=== PATIENT | female | born 1980 ===

== ENCOUNTER 2017-10-26 19:49 | Emergency (ER) | payer MEDICARE ==
[2017-10-26 20:54] VITALS: BP 106/64
[2017-10-27] MEDS ORDERED: VISTARIL PO ONE (00:30)
[2017-10-27] MEDS ORDERED: DECADRON IM ONE (00:30)
[2017-10-27] MEDS ORDERED: NORCO 5/325 PO ONE (00:30)
--- NOTE | 2017-10-27 00:31 | Emergency Department Report ---
ED Rash HPI - HPI Chief Complaint: Skin Rash Stated Complaint: WOLFF ON FACE SKIN BACK,HEADACHE Time Seen by Provider: 10/26/17 22:50 Duration: 1 Day Location: Head (face), Upper Extremities, Lower Extremities Suspected Cause: Food Rash Symptoms: Yes Itching, No Facial Swelling, No Tongue/Oral Swelling, No Breathing Difficulties, No Choking Sensation, No Wheezing/Dyspnea, No Peeling, No Blistering, No Fever, No Lightheaded, No Malaise, No Myalgias Severity: moderate Other History: This is a 37-year-old female who presents with a rash to face neck and bilateral upper extremity and had a blood starting yesterday. Patient reportedly was eating a chicken salad from [employer] last night as broken out with a rash shortly after eating dinner. Patient reports she woke up yesterday morning she had a migraine headache. She tried taking Aleve with nose relief of symptoms. He has been up on her written a 2 face for rash to face and no improvement of symptoms. Denies any visual changes , aura with headache, tongue swelling, drooling, and difficulty swallowing. ED Review of Systems ROS: Stated complaint: WOLFF ON FACE SKIN BACK,HEADACHE Other details as noted in HPI Constitutional: denies: chills, fever Respiratory: denies: cough, shortness of breath, wheezing Cardiovascular: denies: chest pain, palpitations Gastrointestinal: denies: abdominal pain, nausea, vomiting, diarrhea Skin: rash (face, neck, and BUE). denies: lesions Neurological: headache. denies: weakness, numbness, paresthesias Psychiatric: denies: anxiety, depression ED Past Medical Hx - Past Medical History Previous Medical History?: Yes Hx GERD: Yes Additional medical history: Patient has a psychiatric history - Surgical History Past Surgical History?: Yes Hx Cholecystectomy: Yes - Social History Smoking Status: Never Smoker Substance Use Type: None - Medications Home Medications: Home Medications Medication Instructions Recorded Confirmed Last Taken Type Ondansetron [Zofran Odt] 4 mg PO Q6HR PRN #20 tab.rapdis 12/02/15 Unknown Rx Promethazine [Phenergan TAB] 25 mg PO Q6HR PRN #20 tab 12/02/15 Unknown Rx traMADol [Ultram 50 MG tab] 50 mg PO Q6HR PRN #20 tablet 12/02/15 Unknown Rx Prednisone [predniSONE 5 mg (6-Day 5 mg PO .TAPER #1 tab.ds.pk 10/27/17 Unknown Rx Pack, 21 Tabs)] Triamcinolone 0.5% [Kenalog 0.5% 1 applic TP TID #60 mg 10/27/17 Unknown Rx CREAM] hydrOXYzine PAMOATE [Vistaril] 25 mg PO Q6HR PRN #20 capsule 10/27/17 Unknown Rx Rash Exam - Exam General: Vital signs noted. No distress. Alert and acting appropriately. HEENT: No Periorbital Edema, No Conjuctival Injection, No Chemosis, No Perioral Edema, No Tongue Edema, No Uvular Edema, No Compromised Airway, No Drooling Lungs: Yes Good Air Exchange (Normal Breath Sounds), No Wheezes, No Ronchi, No Stridor, No Cough, No Labored Respirations, No Retractions, No Use of Accessory Muscles, No Other Abnormal Lung Sounds Heart: Yes Regular, No Murmur Skin: Yes Maculopapular Rash (multiple 1-2 cm erythematous maculular papular rash to face, anterior neck and BUE), No Urticarial Rash, No Morbilliform rash, No Bulla(e), No Excoriations, No Weeping, No Tenderness, No Erythema, No Edema, No Encrustations, No Other Other: Positive: Abdomen Normal, Neurologic Normal, Musculoskeletal Normal ED Course Vital Signs 10/26/17 20:51 Temperature 98.6 F Pulse Rate 73 Respiratory 16 Rate Blood Pressure 106/64 O2 Sat by Pulse 98 Oximetry ED Medical Decision Making - Medical Decision Making This is a 37-year-old female with a rash to face, neck, and bilateral upper extremities. Patient was examined by me. Vital stable. Patient is nontoxic appearing. Given dexamethasone 8 mg IM, and Vistaril 25 mg by mouth, [place] 5/ 325 mg by mouth once in the ER. Start medrol dose aydin, Vistaril, triamcinolone cream. Plan discussed with patient to discharge home and treat outpatient. Shee agrees with ER plan. Patient discharged home in stable condition. Follow up with PCP in 2-3 days. Critical care attestation.: If time is entered above; I have spent that time in minutes in the direct care of this critically ill patient, excluding procedure time. ED Disposition Clinical Impression: Allergic contact dermatitis Qualifiers: Contact dermatitis trigger: unspecified trigger Qualified Code(s): L23.9 - Allergic contact dermatitis, unspecified cause Migraine Qualifiers: Migraine type: without aura Status migrainosus presence: with status migrainosus Intractability: not intractable Qualified Code(s): G43.001 - Migraine without aura, not intractable, with status migrainosus Disposition: TO HOME OR SELFCARE Is pt being admited?: No Does the pt Need Aspirin: No Condition: Stable Instructions: Contact Dermatitis (ED), Migraine Headache (ED) Additional Instructions: Apply a thin layer of triamcinolone cream to affected areas twice a day. Take Vistaril for itching. Follow-up with primary care provider in 2-3 days. Prescriptions: hydrOXYzine PAMOATE [Vistaril] 25 mg PO Q6HR PRN #20 capsule PRN Reason: Itching Prednisone [predniSONE 5 mg (6-Day Pack, 21 Tabs)] 5 mg PO .TAPER #1 tab.ds.pk Triamcinolone 0.5% [Kenalog 0.5% CREAM] 1 applic TP TID #60 mg Referrals: [facility] [Outside] - 3-5 Days [facility] [Outside] - 3-5 Days [facility] [Outside] - 3-5 Days Time of Disposition: 01:36 Print Language: ROMANSH
== END 2017-10-27 01:50 | disposition home or self-care (01) ==
LOC: ED 19:49
DX: L23.9 Allergic contact dermatitis, unspecified cause (principal); G43.001 Migraine without aura, not intractable, with status migrainosus; K21.9 Gastro-esophageal reflux disease without esophagitis; Z90.49 Acquired absence of other specified parts of digestive tract; Z79.899 Other long term (current) drug therapy; Z88.1 Allergy status to other antibiotic agents
CPT/HCPCS: 96372; 99282; J1100; Q0177

== ENCOUNTER 2018-01-11 11:51 | Emergency (ER) | payer MEDICARE ==
[2018-01-11] MEDS ORDERED: NACL 0.9% 500 ML 500 ML IV ONE ×2 (12:59→14:30)
--- NOTE | 2018-01-11 13:07 | Emergency Department Report ---
Chief Complaint: Weakness Stated Complaint: LOW IRON Time Seen by Provider: 01/11/18 12:45 - HPI History of Present Illness: 37 yo F presents to the ED with the complaint of generalized weakness. She also has not been eating or sleeping. She has a hx of depression for which she sees Dr Taylor and in on Zyprexa and another med for the past month. This is when some of her other physical symptoms and/or complaints started. She also has a history of iron deficiency anemia. The father is with her and does most of the talking and says she was sent in by her PCP for IVF and evaluation. - ROS Review of Systems: Positive for generalized weakness, insomnia, decreased appetite Negative for CP, SOB, fever, N/V, vag bleeding - Exam Vital Signs: Vital Signs 01/11/18 11:57 Temperature 97.9 F Pulse Rate 108 H Respiratory 16 Rate Blood Pressure 129/81 O2 Sat by Pulse 100 Oximetry Physical Exam: Patient has a flat affect. Awake and alert. Normal heart and lung sounds to auscultation. MSE screening note: Focused history and physical exam performed. Due to findings the following was ordered: I have ordered a CBC, BMP, TSH, U/A and preg test. She will have IVF. ED Disposition for MSE Condition: Stable Referrals: PRIMARY CARE, [Primary Care Provider] - 3-5 Days
[2018-01-11 13:14] LABS: Basophils # (Auto) 0.1 K/mm3 (0.0-0.1); Basophils % (Auto) 0.8 % (0.0-1.8); Eosinophils # (Auto) 0.1 K/mm3 (0.0-0.4); Eosinophils % (Auto) 0.8 % (0.0-4.3); Hematocrit 38.6 % (30.3-42.9); Hemoglobin 12.2 gm/dl (10.1-14.3); Lymphocytes # (Auto) 2.1 K/mm3 (1.2-5.4); Lymphocytes % (Auto) 30.1 % (13.4-35.0); Mean Corpuscular HGB Conc 32 % (30-34); Mean Corpuscular Volume 72 fl (79-97); Monocytes % (Auto) 14.1 % (0.0-7.3); Platelet Count 295 K/mm3 (140-440); Red Blood Count 5.39 M/mm3 (3.65-5.03); Red Cell Distribution Width 16.3 % (13.2-15.2)
[2018-01-11 13:17] LABS: Mean Corpuscular Hemoglobin 23 pg (28-32)
[2018-01-11 13:43] LABS: Alanine Aminotransferase 23 units/L (7-56); Albumin 4.4 g/dL (3.9-5); BUN/Creatinine Ratio 26; Blood Urea Nitrogen 13 mg/dL (7-17); Calcium 8.8 mg/dL (8.4-10.2); Hemolysis Index 4
--- NOTE | 2018-01-11 15:04 | Emergency Department Report ---
HPI - General Chief Complaint: Weakness Time Seen by Provider: 01/11/18 12:45 - HPI HPI: 37 yo F presents to the ED with the complaint of generalized weakness. She also has not been eating or sleeping. She has a hx of depression for which she sees Dr Taylor and in on Zyprexa and another med for the past month. This is when some of her other physical symptoms and/or complaints started. She also has a history of iron deficiency anemia. The father is with her and does most of the talking and says she was sent in by her PCP, Dr Rader, for IVF and evaluation. ED Past Medical Hx - Past Medical History Hx GERD: Yes Additional medical history: Patient has a psychiatric history - Surgical History Hx Cholecystectomy: Yes - Social History Smoking Status: Never Smoker Substance Use Type: None - Medications Home Medications: Home Medications Medication Instructions Recorded Confirmed Last Taken Type Ondansetron [Zofran Odt] 4 mg PO Q6HR PRN #20 tab.rapdis 12/02/15 Unknown Rx Promethazine [Phenergan TAB] 25 mg PO Q6HR PRN #20 tab 12/02/15 Unknown Rx traMADol [Ultram 50 MG tab] 50 mg PO Q6HR PRN #20 tablet 12/02/15 Unknown Rx Prednisone [predniSONE 5 mg (6-Day 5 mg PO .TAPER #1 tab.ds.pk 10/27/17 Unknown Rx Pack, 21 Tabs)] Triamcinolone 0.5% [Kenalog 0.5% 1 applic TP TID #60 mg 10/27/17 Unknown Rx CREAM] hydrOXYzine PAMOATE [Vistaril] 25 mg PO Q6HR PRN #20 capsule 10/27/17 Unknown Rx ED Review of Systems ROS: Stated complaint: LOW IRON Other details as noted in HPI Comment: All other systems reviewed and negative Constitutional: weakness, other (decreased appetite, insomnia). denies: fever Eyes: denies: eye pain, eye discharge, vision change ENT: denies: ear pain, throat pain Respiratory: denies: cough, shortness of breath, wheezing Cardiovascular: denies: chest pain, palpitations Gastrointestinal: denies: abdominal pain, nausea, diarrhea Genitourinary: denies: urgency, dysuria, discharge Musculoskeletal: denies: back pain, joint swelling, arthralgia Skin: denies: rash, lesions Neurological: denies: headache, numbness Psychiatric: depression Physical Exam - Physical Exam Vital Signs: Vital Signs 01/11/18 11:57 Temperature 97.9 F Pulse Rate 108 H Respiratory 16 Rate Blood Pressure 129/81 O2 Sat by Pulse 100 Oximetry Physical Exam: GENERAL: The patient is well-developed well-nourished. HENT: Normocephalic. Atraumatic. Patient has moist mucous membranes. EYES: Extraocular motions are intact. Pupils equal reactive to light bilaterally. NECK: Supple. Trachea is midline. CHEST/LUNGS: Clear to auscultation. There is no respiratory distress noted. HEART/CARDIOVASCULAR: Regular. There is no tachycardia. There is no murmur. ABDOMEN: Abdomen is soft, nontender. Patient has normal bowel sounds. There is no abdominal distention. SKIN: Skin is warm and dry. NEURO: The patient is awake, alert, and oriented. The patient is cooperative. The patient has no focal neurologic deficits. The patient has normal speech. Cranial nerves II through XII grossly intact. MUSCULOSKELETAL: There is no tenderness or deformity. There is no limitation range of motion. There is no evidence of acute injury. PSYCH: Patient has a flat affect. ED Course Vital Signs 01/11/18 11:57 Temperature 97.9 F Pulse Rate 108 H Respiratory 16 Rate Blood Pressure 129/81 O2 Sat by Pulse 100 Oximetry - Consultations Consultation #1: 01/11/18 18:10 I spoke with the patient's primary care physician and senior cognos developer, Dr. Rader, regarding the patient's presentation and previous visit with him. He says that he had the patient set up to get IV fluid resuscitation through [place] but the patient chose to come to [facility] this afternoon. He feels that she may be dehydrated but also agrees that her symptoms may be partially psychiatric and that they were encouraged to follow up with the psychiatrist, Dr. Oneill. ED Medical Decision Making - Lab Data Result diagrams: 01/11/18 13:01 01/11/18 13:01 - EKG Data -: EKG Interpreted by Me EKG shows normal: sinus rhythm, axis, intervals, QRS complexes, ST-T waves Rate: normal - EKG Data When compared to previous EKG there are: previous EKG unavailable Interpretation: normal EKG - Medical Decision Making Patient presents with multiple complaints including some generalized weakness, insomnia, decreased appetite. She does have a history of depression and after speaking with the PCP and also appears that she may have some history of bipolar disorder. She does not have any focal, motor or sensory deficits and her cranial nerves are intact, but does appear to have a flat affect. Labs have been mostly unremarkable. There is no significant anemia. No electrolyte abnormalities, renal insufficiency or glucose abnormalities. She has normal thyroid function. Urinalysis does not show any urinary tract infection and the patient is not . She was given a few doses of IV fluid resuscitation. Vital signs stable throughout her ED course including being afebrile. She appears safe for discharge home at this time. She has good follow-up with primary care and psychiatry. I believe that some, if not all of her symptoms could be related to her psychiatric conditions. The patient was seen ambulatory prior to discharge. She is awake and alert and cooperative. - Differential Diagnosis depression, bipolar disorder, dehydration, anemia Critical Care Time: No Critical care attestation.: If time is entered above; I have spent that time in minutes in the direct care of this critically ill patient, excluding procedure time. ED Disposition Clinical Impression: Generalized weakness, Dehydration Disposition: DC-01 TO HOME OR SELFCARE Is pt being admited?: No Condition: Stable Instructions: Dehydration (ED), Depression (ED), Weakness (ED) Additional Instructions: Please follow-up with your primary care physician and your psychiatrist in the next few days without fail. Return to the emergency Department with any worsening of your symptoms or with any acute distress. Referrals: LAZARA RADER DO [Staff Physician] - 2-3 Days AMILCAR ONEILL MD [Referring] - 2-3 Days Time of Disposition: 16:24
[2018-01-11 16:11] LABS: Bilirubin,Urine NEG (Negative); Blood,Urine SM (Negative); Color,Urine Yellow (Yellow); Protein,Urine <15 mg/dL mg/dL (Negative); Urobilinogen,Urine < 2.0 mg/dL (<2.0); WBC,Urine < 1.0 /HPF (0.0-6.0)
[2018-01-11 16:25] VITALS: BP 130/84
== END 2018-01-11 16:31 | disposition home or self-care (01) ==
LOC: ED 11:51
DX: M62.81 Muscle weakness (generalized) (principal); E86.0 Dehydration; K21.9 Gastro-esophageal reflux disease without esophagitis; F32.9 Major depressive disorder, single episode, unspecified; Z90.49 Acquired absence of other specified parts of digestive tract
CPT/HCPCS: 36415; 80053; 81001; 84443; 84703; 85025; 93005; 93010; 99283; J7040

== ENCOUNTER 2018-02-07 21:58 | Emergency (ER) | payer MEDICARE ==
[2018-02-07 23:01] VITALS: BP 102/63
[2018-02-07 23:30] LABS: Basophils % (Auto) 0.5 % (0.0-1.8); Eosinophils # (Auto) 0.1 K/mm3 (0.0-0.4); Eosinophils % (Auto) 0.9 % (0.0-4.3); Hematocrit 39.1 % (30.3-42.9); Hemoglobin 12.4 gm/dl (10.1-14.3); Lymphocytes # (Auto) 2.2 K/mm3 (1.2-5.4); Lymphocytes % (Auto) 29.8 % (13.4-35.0); Mean Corpuscular HGB Conc 32 % (30-34); Mean Corpuscular Volume 72 fl (79-97); Monocytes # (Auto) 0.8 K/mm3 (0.0-0.8); Monocytes % (Auto) 11.3 % (0.0-7.3); Platelet Count 265 K/mm3 (140-440); Red Blood Count 5.43 M/mm3 (3.65-5.03); Red Cell Distribution Width 16.1 % (13.2-15.2)
[2018-02-07 23:32] LABS: Amorphous Crystals,Urine Few; Bilirubin,Urine NEG (Negative); Blood,Urine NEG (Negative); Color,Urine Yellow (Yellow); Mucus,Urine 2+ /HPF; Protein,Urine <15 mg/dL mg/dL (Negative); Urobilinogen,Urine < 2.0 mg/dL (<2.0)
[2018-02-07 23:41] LABS: Amphetamine Screen,Urine PRESUMPTIVE NEGATIVE; Benzodiazepines Screen,Urine PRESUMPTIVE NEGATIVE; Cannabinoid Screen,Urine PRESUMPTIVE NEGATIVE; Cocaine Screen,Urine PRESUMPTIVE NEGATIVE; Methadone Screen,Urine PRESUMPTIVE NEGATIVE; Opiate Screen,Urine PRESUMPTIVE NEGATIVE
[2018-02-07 23:44] LABS: BUN/Creatinine Ratio 20; Blood Urea Nitrogen 12 mg/dL (7-17); Hemolysis Index 20
[2018-02-07 23:50] LABS: Mean Corpuscular Hemoglobin 23 pg (28-32)
--- NOTE | 2018-02-08 01:57 | Emergency Department Report ---
ED Psych HPI - General Chief Complaint: Medical Clearance Stated Complaint: WEAK/WEIGHT LOSS Time Seen by Provider: 02/08/18 01:06 Source: patient Mode of arrival: Ambulatory - History of Present Illness Initial Comments: Patient is a 37-year-old female who is presenting with weight loss and depression for the past several months. Father is here with her also states that she's had some anemia secondary to some abnormal vaginal bleeding for some time and has had iron infusions that she is not gaining weight she is not eating well and her mood has been very depressed. The patient was sent from [place] to be medically cleared for treatment for depression. The patient is denying any nausea vomiting diarrhea chest pain shortness of breath fevers chills at this time. - Related Data Previous Rx's Medication Instructions Recorded Last Taken Type Ondansetron [Zofran Odt] 4 mg PO Q6HR PRN #20 tab.rapdis 12/02/15 Unknown Rx Promethazine [Phenergan TAB] 25 mg PO Q6HR PRN #20 tab 12/02/15 Unknown Rx traMADol [Ultram 50 MG tab] 50 mg PO Q6HR PRN #20 tablet 12/02/15 Unknown Rx Prednisone [predniSONE 5 mg (6-Day 5 mg PO .TAPER #1 tab.ds.pk 10/27/17 Unknown Rx Pack, 21 Tabs)] Triamcinolone 0.5% [Kenalog 0.5% 1 applic TP TID #60 mg 10/27/17 Unknown Rx CREAM] hydrOXYzine PAMOATE [Vistaril] 25 mg PO Q6HR PRN #20 capsule 10/27/17 Unknown Rx Allergies Allergy/AdvReac Type Severity Reaction Status Date / Time amoxicillin Allergy Unknown Verified 10/26/17 20:51 ED Review of Systems ROS: Stated complaint: WEAK/WEIGHT LOSS Other details as noted in HPI Comment: All other systems reviewed and negative ED Past Medical Hx - Past Medical History Hx GERD: Yes Hx Psychiatric Treatment: Yes (Depression, Schizophrenia) Additional medical history: Patient has a psychiatric history - Surgical History Hx Cholecystectomy: Yes - Social History Smoking Status: Never Smoker Substance Use Type: None - Medications Home Medications: Home Medications Medication Instructions Recorded Confirmed Last Taken Type Ondansetron [Zofran Odt] 4 mg PO Q6HR PRN #20 tab.rapdis 06/14/16 Unknown Rx Promethazine [Phenergan TAB] 25 mg PO Q6HR PRN #20 tab 12/02/15 Unknown Rx traMADol [Ultram 50 MG tab] 50 mg PO Q6HR PRN #20 tablet 12/02/15 Unknown Rx Prednisone [predniSONE 5 mg (6-Day 5 mg PO .TAPER #1 tab.ds.pk 10/27/17 Unknown Rx Pack, 21 Tabs)] Triamcinolone 0.5% [Kenalog 0.5% 1 applic TP TID #60 mg 10/27/17 Unknown Rx CREAM] hydrOXYzine PAMOATE [Vistaril] 25 mg PO Q6HR PRN #20 capsule 10/27/17 Unknown Rx ED Physical Exam - General Limitations: No Limitations General appearance: alert, in no apparent distress, other (patient is very thin and emaciated appearing) - Head Head exam: Present: atraumatic, normocephalic - Eye Eye exam: Present: normal appearance - ENT ENT exam: Present: mucous membranes moist - Neck Neck exam: Present: normal inspection - Respiratory Respiratory exam: Present: normal lung sounds bilaterally. Absent: respiratory distress, wheezes, rales, rhonchi - Cardiovascular Cardiovascular Exam: Present: regular rate, normal rhythm. Absent: systolic murmur, diastolic murmur, rubs, gallop - GI/Abdominal GI/Abdominal exam: Present: soft, normal bowel sounds. Absent: distended, tenderness, guarding, rebound, rigid - Extremities Exam Extremities exam: Present: normal inspection - Back Exam Back exam: Present: normal inspection - Neurological Exam Neurological exam: Present: alert, oriented X3 - Psychiatric Psychiatric exam: Present: normal affect, depressed - Skin Skin exam: Present: warm, dry, intact, normal color. Absent: rash ED Course Vital Signs 02/07/18 22:51 Temperature 98.1 F Pulse Rate 70 Respiratory 16 Rate Blood Pressure 102/63 O2 Sat by Pulse 100 Oximetry ED Medical Decision Making - Lab Data Result diagrams: 02/07/18 23:09 02/07/18 23:09 Labs 02/07/18 02/07/18 02/07/18 23:09 23:09 23:09 WBC RBC Hgb Hct MCV MCH MCHC RDW Plt Count Lymph % (Auto) Esmeralda % (Auto) Eos % (Auto) Baso % (Auto) Lymph # Esmeralda # Eos # Baso # Seg Neutrophils % Seg Neutrophils # Sodium 140 Potassium 3.9 Chloride 101.6 Carbon Dioxide 26 Anion Gap 16 BUN 12 Creatinine 0.6 L Estimated GFR > 60 BUN/Creatinine Ratio 20 Glucose 87 Calcium 9.0 HCG, Qual Urine Color Urine Turbidity Urine pH Ur Specific [place] Urine Protein Urine Glucose (UA) Urine Ketones Urine Blood Urine Nitrite Urine Bilirubin Urine Urobilinogen Ur Leukocyte Esterase Urine WBC (Auto) Urine RBC (Auto) U Epithel Cells (Auto) Amorphous Crystals Urine Mucus Salicylates < 0.3 L Urine Opiates Screen Urine Methadone Screen Acetaminophen < 5.0 L Ur Barbiturates Screen Ur Phencyclidine Scrn Ur Amphetamines Screen U Benzodiazepines Scrn Urine Cocaine Screen U Marijuana (THC) Screen Drugs of Abuse Note Plasma/Serum Alcohol 02/07/18 02/07/18 02/07/18 23:09 23:09 23:09 WBC 7.3 RBC 5.43 H Hgb 12.4 Hct 39.1 MCV 72 L MCH 23 L MCHC 32 RDW 16.1 H Plt Count 265 Lymph % (Auto) 29.8 Esmeralda % (Auto) 11.3 H Eos % (Auto) 0.9 Baso % (Auto) 0.5 Lymph # 2.2 Esmeralda # 0.8 Eos # 0.1 Baso # 0.0 Seg Neutrophils % 57.5 Seg Neutrophils # 4.2 Sodium Potassium Chloride Carbon Dioxide Anion Gap BUN Creatinine Estimated GFR BUN/Creatinine Ratio Glucose Calcium HCG, Qual Negative Urine Color Urine Turbidity Urine pH Ur Specific [place] Urine Protein Urine Glucose (UA) Urine Ketones Urine Blood Urine Nitrite Urine Bilirubin Urine Urobilinogen Ur Leukocyte Esterase Urine WBC (Auto) Urine RBC (Auto) U Epithel Cells (Auto) Amorphous Crystals Urine Mucus Salicylates Urine Opiates Screen Urine Methadone Screen Acetaminophen Ur Barbiturates Screen Ur Phencyclidine Scrn Ur Amphetamines Screen U Benzodiazepines Scrn Urine Cocaine Screen U Marijuana (THC) Screen Drugs of Abuse Note Plasma/Serum Alcohol < 0.01 02/07/18 02/07/18 Unknown Unknown WBC RBC Hgb Hct MCV MCH MCHC RDW Plt Count Lymph % (Auto) Esmeralda % (Auto) Eos % (Auto) Baso % (Auto) Lymph # Esmeralda # Eos # Baso # Seg Neutrophils % Seg Neutrophils # Sodium Potassium Chloride Carbon Dioxide Anion Gap BUN Creatinine Estimated GFR BUN/Creatinine Ratio Glucose Calcium HCG, Qual Urine Color Yellow Urine Turbidity Cloudy Urine pH 7.0 Ur Specific [place] 1.019 Urine Protein <15 mg/dl Urine Glucose (UA) Neg Urine Ketones Neg Urine Blood Neg Urine Nitrite Neg Urine Bilirubin Neg Urine Urobilinogen < 2.0 Ur Leukocyte Esterase Neg Urine WBC (Auto) 5.0 Urine RBC (Auto) 55.0 U Epithel Cells (Auto) 7.0 Amorphous Crystals Few Urine Mucus 2+ Salicylates Urine Opiates Screen Presumptive negative Urine Methadone Screen Presumptive negative Acetaminophen Ur Barbiturates Screen Presumptive negative Ur Phencyclidine Scrn Presumptive negative Ur Amphetamines Screen Presumptive negative U Benzodiazepines Scrn Presumptive negative Urine Cocaine Screen Presumptive negative U Marijuana (THC) Screen Presumptive negative Drugs of Abuse Note Disclamer Plasma/Serum Alcohol - Medical Decision Making Patient's hemoglobin is within normal limits. Her kidney functions 5 she does not appear to be dehydrated. Patient is medically cleared for psych evaluation. Critical care attestation.: If time is entered above; I have spent that time in minutes in the direct care of this critically ill patient, excluding procedure time. ED Disposition Clinical Impression: Depression Qualifiers: Depression Type: unspecified Qualified Code(s): F32.9 - Major depressive disorder, single episode, unspecified Disposition: DC/TX-65 PSY HOSP/PSY UNIT Condition: Stable
== END 2018-02-08 03:39 ==
LOC: ED 21:58
DX: F32.9 Major depressive disorder, single episode, unspecified (principal); F20.9 Schizophrenia, unspecified; Z90.49 Acquired absence of other specified parts of digestive tract; Z88.1 Allergy status to other antibiotic agents
CPT/HCPCS: 36415; 80048; 80307; 81001; 84703; 85025; 99285; G0480; 80320

== ENCOUNTER 2018-07-29 12:32 | Emergency (ER) | payer MEDICARE ==
[2018-07-29 12:55] VITALS: BP 102/60
[2018-07-29] MEDS ORDERED: TYLENOL PO ONE (13:15)
--- NOTE | 2018-07-29 13:29 | Emergency Department Report ---
ED HPI - General Chief complaint: Vaginal Bleeding Stated complaint: BLEEDING/STOMACH PAIN/URINE ALOT Time Seen by Provider: 07/29/18 13:01 Source: patient Mode of arrival: Ambulatory Limitations: No Limitations - Related Data Previous Rx's Medication Instructions Recorded Last Taken Type Ondansetron [Zofran Odt] 4 mg PO Q6HR PRN #20 tab.rapdis 12/02/15 Unknown Rx Promethazine [Phenergan TAB] 25 mg PO Q6HR PRN #20 tab 12/02/15 Unknown Rx traMADol [Ultram 50 MG tab] 50 mg PO Q6HR PRN #20 tablet 12/02/15 Unknown Rx Prednisone [predniSONE 5 mg (6-Day 5 mg PO .TAPER #1 tab.ds.pk 10/27/17 Unknown Rx Pack, 21 Tabs)] Triamcinolone 0.5% [Kenalog 0.5% 1 applic TP TID #60 mg 10/27/17 Unknown Rx CREAM] hydrOXYzine PAMOATE [Vistaril] 25 mg PO Q6HR PRN #20 capsule 10/27/17 Unknown Rx Allergies Allergy/AdvReac Type Severity Reaction Status Date / Time amoxicillin Allergy Unknown Verified 10/26/17 20:51 ED Review of Systems ROS: Stated complaint: BLEEDING/STOMACH PAIN/URINE ALOT Other details as noted in HPI ED Past Medical Hx - Past Medical History Previous Medical History?: Yes Hx GERD: Yes Hx Psychiatric Treatment: Yes (Depression, Schizophrenia) Additional medical history: Patient has a psychiatric history - Surgical History Past Surgical History?: Yes Hx Cholecystectomy: Yes - Social History Smoking Status: Never Smoker Substance Use Type: None - Medications Home Medications: Home Medications Medication Instructions Recorded Confirmed Last Taken Type Ondansetron [Zofran Odt] 4 mg PO Q6HR PRN #20 tab.rapdis 12/02/15 Unknown Rx Promethazine [Phenergan TAB] 25 mg PO Q6HR PRN #20 tab 12/02/15 Unknown Rx traMADol [Ultram 50 MG tab] 50 mg PO Q6HR PRN #20 tablet 12/02/15 Unknown Rx Prednisone [predniSONE 5 mg (6-Day 5 mg PO .TAPER #1 tab.ds.pk 10/27/17 Unknown Rx Pack, 21 Tabs)] Triamcinolone 0.5% [Kenalog 0.5% 1 applic TP TID #60 mg 10/27/17 Unknown Rx CREAM] hydrOXYzine PAMOATE [Vistaril] 25 mg PO Q6HR PRN #20 capsule 10/27/17 Unknown Rx ED Physical Exam - General Limitations: No Limitations ED Course Vital Signs 07/29/18 12:50 Temperature 98.1 F Pulse Rate 91 H Respiratory 18 Rate Blood Pressure 102/60 O2 Sat by Pulse 99 Oximetry Critical care attestation.: If time is entered above; I have spent that time in minutes in the direct care of this critically ill patient, excluding procedure time. ED Disposition Condition: Stable Referrals: PRIMARY CARE, [Primary Care Provider] - 3-5 Days
[2018-07-29 13:57] LABS: Basophils % (Auto) 0.5 % (0.0-1.8); Eosinophils % (Auto) 0.6 % (0.0-4.3); Hematocrit 38.3 % (30.3-42.9); Hemoglobin 12.1 gm/dl (10.1-14.3); Lymphocytes # (Auto) 1.3 K/mm3 (1.2-5.4); Lymphocytes % (Auto) 33.8 % (13.4-35.0); Mean Corpuscular HGB Conc 32 % (30-34); Mean Corpuscular Volume 72 fl (79-97); Monocytes # (Auto) 0.5 K/mm3 (0.0-0.8); Monocytes % (Auto) 13.7 % (0.0-7.3); Platelet Count 263 K/mm3 (140-440); Red Blood Count 5.31 M/mm3 (3.65-5.03); Red Cell Distribution Width 13.7 % (13.2-15.2)
--- NOTE | 2018-07-29 14:53 | Emergency Department Report ---
ED Female HPI - General Chief complaint: Vaginal Bleeding Stated complaint: BLEEDING/STOMACH PAIN/URINE ALOT Time Seen by Provider: 07/29/18 13:01 Source: patient Mode of arrival: Ambulatory Limitations: No Limitations - History of Present Illness Initial comments: 38-year-old female with a past medical history of depression, schizophrenia, GERD, and previous cholecystectomy presents to the hospital complaining of vaginal bleeding since last week. Patient states she's been bleeding the last several days with typical for her However, she is heavier than normal. Today she states she she has only used 1 pad and bleeding is decreasing. She states that she's had heavy bleeding for the last several months and was placed on the nuva ring 1 month. She is requesting ultrasound to see was going on and states she's having some vaginal irritation and a headache. Patient has not been sexually active in a long time. Patient also complains of feeling lightheaded. - Related Data Previous Rx's Medication Instructions Recorded Last Taken Type Ondansetron [Zofran Odt] 4 mg PO Q6HR PRN #20 tab.rapdis 12/02/15 Unknown Rx Promethazine [Phenergan TAB] 25 mg PO Q6HR PRN #20 tab 12/02/15 Unknown Rx traMADol [Ultram 50 MG tab] 50 mg PO Q6HR PRN #20 tablet 12/02/15 Unknown Rx Prednisone [predniSONE 5 mg (6-Day 5 mg PO .TAPER #1 tab.ds.pk 10/27/17 Unknown Rx Pack, 21 Tabs)] Triamcinolone 0.5% [Kenalog 0.5% 1 applic TP TID #60 mg 10/27/17 Unknown Rx CREAM] hydrOXYzine PAMOATE [Vistaril] 25 mg PO Q6HR PRN #20 capsule 10/27/17 Unknown Rx Ibuprofen [Motrin] 400 mg PO Q8H PRN #30 tablet 07/29/18 Unknown Rx Allergies Allergy/AdvReac Type Severity Reaction Status Date / Time amoxicillin Allergy Unknown Verified 10/26/17 20:51 ED Review of Systems ROS: Stated complaint: BLEEDING/STOMACH PAIN/URINE ALOT Other details as noted in HPI ED Past Medical Hx - Past Medical History Previous Medical History?: Yes Hx GERD: Yes Hx Psychiatric Treatment: Yes (Depression, Schizophrenia) Additional medical history: Patient has a psychiatric history - Surgical History Past Surgical History?: Yes Hx Cholecystectomy: Yes - Social History Smoking Status: Never Smoker Substance Use Type: None - Medications Home Medications: Home Medications Medication Instructions Recorded Confirmed Last Taken Type Ondansetron [Zofran Odt] 4 mg PO Q6HR PRN #20 tab.rapdis 12/02/15 Unknown Rx Promethazine [Phenergan TAB] 25 mg PO Q6HR PRN #20 tab 12/02/15 Unknown Rx traMADol [Ultram 50 MG tab] 50 mg PO Q6HR PRN #20 tablet 12/02/15 Unknown Rx Prednisone [predniSONE 5 mg (6-Day 5 mg PO .TAPER #1 tab.ds.pk 10/27/17 Unknown Rx Pack, 21 Tabs)] Triamcinolone 0.5% [Kenalog 0.5% 1 applic TP TID #60 mg 10/27/17 Unknown Rx CREAM] hydrOXYzine PAMOATE [Vistaril] 25 mg PO Q6HR PRN #20 capsule 10/27/17 Unknown Rx Ibuprofen [Motrin] 400 mg PO Q8H PRN #30 tablet 07/29/18 Unknown Rx ED Physical Exam - General Limitations: No Limitations - Other Other exam information: General: No limitations, patient is alert in no acute distress Head exam: Atraumatic, normocephalic Eyes exam: Normal appearance, pupils equal reactive to light, extraocular movements intact ENT: Moist mucous membrane, normal oropharynx Neck exam: Normal inspection, full range of motion, no meningismus nontender Respiratory exam: Clear to auscultation bilateral, no wheezes, rales, crackles Cardiovascular: Normal rate and rhythm, normal heart sounds Abdomen: Soft, nondistended, and nontender, with normal bowel sounds, no rebound, or guarding : Absolutely no vaginal bleeding. No vaginal discharge. No external lesions Extremity: Full range of motion normal inspection no deformity Back: Normal Inspection, full range of motion, no tenderness Neurologic: Alert, oriented x3, cranial nerves intact, no motor or sensory deficit Psychiatric: normal affect, normal mood Skin: Warm, dry, intact ED Course Vital Signs 07/29/18 07/29/18 12:50 13:21 Temperature 98.1 F Pulse Rate 91 H Respiratory 18 18 Rate Blood Pressure 102/60 O2 Sat by Pulse 99 Oximetry ED Medical Decision Making - Lab Data Result diagrams: 07/29/18 13:26 Lab Results 02/09/19 02/09/19 Range/Units 13:26 13:26 WBC 3.9 L (4.5-11.0) K/mm3 RBC 5.31 H (3.65-5.03) M/mm3 Hgb 12.1 (10.1-14.3) gm/dl Hct 38.3 (30.3-42.9) % MCV 72 L (79-97) fl MCH 23 L (28-32) pg MCHC 32 (30-34) % RDW 13.7 (13.2-15.2) % Plt Count 263 (140-440) K/mm3 Lymph % (Auto) 33.8 (13.4-35.0) % [place] % (Auto) 13.7 H (0.0-7.3) % Eos % (Auto) 0.6 (0.0-4.3) % Baso % (Auto) 0.5 (0.0-1.8) % Lymph # 1.3 (1.2-5.4) K/mm3 [place] # 0.5 (0.0-0.8) K/mm3 Eos # 0.0 (0.0-0.4) K/mm3 Baso # 0.0 (0.0-0.1) K/mm3 Seg Neutrophils % 51.4 (40.0-70.0) % Seg Neutrophils # 2.0 (1.8-7.7) K/mm3 HCG, Quant < 2 (0-4) mIU/mL wet prep neg - Medical Decision Making No signs of infection, no signs of bleeding, no signs of , no signs of anemia, patient will be discharged to follow with [facility] - Differential Diagnosis vaginitis, cervicitis, DUB, , anemia Critical Care Time: No Critical care attestation.: If time is entered above; I have spent that time in minutes in the direct care of this critically ill patient, excluding procedure time. ED Disposition Clinical Impression: Heavy menses Disposition: DC- TO HOME OR SELFCARE Is pt being admited?: No Does the pt Need Aspirin: No Condition: Stable Instructions: Dysfunctional Uterine Bleeding (ED) Additional Instructions: Take the medication as prescribed. Follow up with your doctor or the bowling alley operator doctor provided. Return if symptoms worsen as indicated by your discharge instructions Prescriptions: Ibuprofen [Motrin] 400 mg PO Q8H PRN #30 tablet PRN Reason: Pain , Severe (7-10) Referrals: LORNA AVERY [Staff Physician] - 3-5 Days (bowling alley operator ) Time of Disposition: 15:49
== END 2018-07-29 16:01 | disposition home or self-care (01) ==
LOC: ED 12:32
DX: N94.89 Other specified conditions associated with female genital organs and menstrual cycle (principal)
CPT/HCPCS: 36415; 84702; 85025; 87210; 87591

== ENCOUNTER 2018-11-04 13:04 | Emergency (ER) | payer MEDICARE ==
--- NOTE | 2018-11-04 13:42 | Emergency Department Report ---
Blank Doc - Documentation Documentation: pt is c/o fatigue "cant focus" "feel different" no N/V/D no urinary sx denies SI/HI +auditory hallucinations flat affect, no eye contact slow to respond
[2018-11-04 14:19] LABS: Basophils % (Auto) 0.8 % (0.0-1.8); Eosinophils % (Auto) 0.5 % (0.0-4.3); Hematocrit 36.9 % (30.3-42.9); Hemoglobin 11.7 gm/dl (10.1-14.3); Lymphocytes # (Auto) 1.9 K/mm3 (1.2-5.4); Lymphocytes % (Auto) 36.5 % (13.4-35.0); Mean Corpuscular HGB Conc 32 % (30-34); Mean Corpuscular Volume 72 fl (79-97); Monocytes # (Auto) 0.7 K/mm3 (0.0-0.8); Monocytes % (Auto) 13.4 % (0.0-7.3); Platelet Count 266 K/mm3 (140-440); Red Blood Count 5.14 M/mm3 (3.65-5.03); Red Cell Distribution Width 14.5 % (13.2-15.2)
[2018-11-04 14:43] LABS: Alanine Aminotransferase 17 units/L (7-56); BUN/Creatinine Ratio 20; Blood Urea Nitrogen 10 mg/dL (7-17); Calcium 9.2 mg/dL (8.4-10.2); Hemolysis Index 28
--- NOTE | 2018-11-04 16:39 | Emergency Department Report ---
ED Psych HPI - General Chief Complaint: Weakness Stated Complaint: CANT FOCUS/LOSS/SICKNESS Time Seen by Provider: 11/04/18 13:38 Source: patient, family Mode of arrival: Ambulatory - History of Present Illness Initial Comments: Patient is 38 years old female with history of schizophrenia with multiple inpatient psychiatric admission. Patient brought to the emergency room acco mpanied by her father who stated that patient has been having difficulty focusing, positive auditory hallucination and decrease appetite. Patient father stated that she lost a lot of weight in the last few weeks. Patient was very poor eye contact and having difficulty to answer questions appropriately father state this is typical for acute psychosis. Patient denied any suicidal or homicidal ideation. Patient stated that she feels depressed. MD Complaint: feels depressed - Related Data Previous Rx's Medication Instructions Recorded Last Taken Type Ondansetron [Zofran Odt] 4 mg PO Q6HR PRN #20 tab.rapdis 12/02/15 Unknown Rx Promethazine [Phenergan TAB] 25 mg PO Q6HR PRN #20 tab 12/02/15 Unknown Rx traMADol [Ultram 50 MG tab] 50 mg PO Q6HR PRN #20 tablet 12/02/15 Unknown Rx Prednisone [predniSONE 5 mg (6-Day 5 mg PO .TAPER #1 tab.ds.pk 10/27/17 Unknown Rx Pack, 21 Tabs)] Triamcinolone 0.5% [Kenalog 0.5% 1 applic TP TID #60 mg 10/27/17 Unknown Rx CREAM] hydrOXYzine PAMOATE [Vistaril] 25 mg PO Q6HR PRN #20 capsule 10/27/17 Unknown Rx Ibuprofen [Motrin] 400 mg PO Q8H PRN #30 tablet 07/29/18 Unknown Rx Benzonatate [Tessalon Perles] 100 mg PO Q8HR #30 capsule 11/01/18 Unknown Rx Cetirizine HCl [ZyrTEC] 10 mg PO DAILY #30 capsule 11/01/18 Unknown Rx prednisoLONE SOD PHOSPHAT [Orapred] 15 mg PO DAILY #80 ml 11/01/18 Unknown Rx Allergies Allergy/AdvReac Type Severity Reaction Status Date / Time amoxicillin Allergy Unknown Verified 11/04/18 13:05 ED Review of Systems ROS: Stated complaint: CANT FOCUS/LOSS/SICKNESS Other details as noted in HPI Comment: All other systems reviewed and negative Constitutional: denies: chills, fever ENT: congestion Respiratory: cough Gastrointestinal: denies: abdominal pain, nausea, vomiting Psychiatric: depression, auditory hallucinations. denies: visual hallucinations, homicidal thoughts, suicidal thoughts ED Past Medical Hx - Past Medical History Hx GERD: Yes Hx Psychiatric Treatment: Yes (Depression, Schizophrenia) Additional medical history: Patient has a psychiatric history. gastritis - Surgical History Hx Cholecystectomy: Yes - Social History Smoking Status: Never Smoker Substance Use Type: None - Medications Home Medications: Home Medications Medication Instructions Recorded Confirmed Last Taken Type Ondansetron [Zofran Odt] 4 mg PO Q6HR PRN #20 tab.rapdis 12/02/15 Unknown Rx Promethazine [Phenergan TAB] 25 mg PO Q6HR PRN #20 tab 12/02/15 Unknown Rx traMADol [Ultram 50 MG tab] 50 mg PO Q6HR PRN #20 tablet 12/02/15 Unknown Rx Prednisone [predniSONE 5 mg (6-Day 5 mg PO .TAPER #1 tab.ds.pk 10/27/17 Unknown Rx Pack, 21 Tabs)] Triamcinolone 0.5% [Kenalog 0.5% 1 applic TP TID #60 mg 10/27/17 Unknown Rx CREAM] hydrOXYzine PAMOATE [Vistaril] 25 mg PO Q6HR PRN #20 capsule 10/27/17 Unknown Rx Ibuprofen [Motrin] 400 mg PO Q8H PRN #30 tablet 07/29/18 Unknown Rx Benzonatate [Tessalon Perles] 100 mg PO Q8HR #30 capsule 11/01/18 Unknown Rx Cetirizine HCl [ZyrTEC] 10 mg PO DAILY #30 capsule 11/01/18 Unknown Rx prednisoLONE SOD PHOSPHAT [Orapred] 15 mg PO DAILY #80 ml 11/01/18 Unknown Rx ED Physical Exam - General Limitations: No Limitations General appearance: alert, other (depressed) - Head Head exam: Present: atraumatic, normocephalic, normal inspection - Eye Eye exam: Present: normal appearance - ENT ENT exam: Present: normal exam, normal orophraynx, mucous membranes moist - Neck Neck exam: Present: normal inspection, full ROM. Absent: tenderness, meningismus, lymphadenopathy, thyromegaly - Respiratory Respiratory exam: Present: normal lung sounds bilaterally - Cardiovascular Cardiovascular Exam: Present: regular rate, normal rhythm, normal heart sounds - GI/Abdominal GI/Abdominal exam: Present: soft, normal bowel sounds. Absent: distended, tenderness, guarding, rebound, rigid, organomegaly, mass, bruit, pulsatile mass, hernia - Extremities Exam Extremities exam: Present: normal inspection, full ROM, normal capillary refill - Back Exam Back exam: Present: normal inspection, full ROM. Absent: tenderness, CVA tenderness (R), CVA tenderness (L), muscle spasm, paraspinal tenderness, vertebral tenderness, rash noted - Neurological Exam Neurological exam: Present: alert, oriented X3, CN II-XII intact, normal gait, reflexes normal - Psychiatric Psychiatric exam: Present: depressed, flat affect. Absent: agitated, anxious, manic, homicidal ideation, suicidal ideation - Skin Skin exam: Present: warm, intact, normal color ED Course Vital Signs 11/04/18 13:39 Temperature 98.1 F Pulse Rate 76 Respiratory 16 Rate Blood Pressure 109/57 O2 Sat by Pulse 100 Oximetry ED Medical Decision Making - Lab Data Result diagrams: 11/04/18 13:49 11/04/18 13:49 Critical care attestation.: If time is entered above; I have spent that time in minutes in the direct care of this critically ill patient, excluding procedure time. ED Disposition Clinical Impression: Acute psychosis, Schizophrenia Disposition: DC/TX-[facility]OS[facility]/PSY UNIT Is pt being admited?: No Condition: Stable Referrals: BRIANNA GIBBS MD [Primary Care Provider] - 3-5 Days
[2018-11-04 16:42] LABS: Bilirubin,Urine NEG (Negative); Blood,Urine MOD (Negative); Color,Urine Straw (Yellow); Protein,Urine <15 mg/dL mg/dL (Negative); Urobilinogen,Urine < 2.0 mg/dL (<2.0); WBC,Urine < 1.0 /HPF (0.0-6.0)
[2018-11-04 16:56] LABS: Amphetamine Screen,Urine PRESUMPTIVE NEGATIVE; Benzodiazepines Screen,Urine PRESUMPTIVE NEGATIVE; Cannabinoid Screen,Urine PRESUMPTIVE NEGATIVE; Cocaine Screen,Urine PRESUMPTIVE NEGATIVE; Methadone Screen,Urine PRESUMPTIVE NEGATIVE; Opiate Screen,Urine PRESUMPTIVE NEGATIVE
[2018-11-05 00:51] VITALS: BP 95/54
[2018-11-05] MEDS ORDERED: ATIVAN ONE (01:32)
[2018-11-05] MEDS ORDERED: TESSALON PERLES PO PRN (07:05)
== END 2018-11-05 07:30 ==
LOC: ED 13:04
DX: F23 Brief psychotic disorder (principal); F32.9 Major depressive disorder, single episode, unspecified; Z88.1 Allergy status to other antibiotic agents; Z90.49 Acquired absence of other specified parts of digestive tract
CPT/HCPCS: 36415; 80053; 80307; 81001; 83735; 84100; 84443; 84703; 85025; 99285; G0480; 80320; J2060

== ENCOUNTER 2019-01-23 20:26 | Emergency (ER) | payer MEDICARE ==
[2019-01-23 20:37] VITALS: BP 100/62
--- NOTE | 2019-01-23 21:05 | Event Note ---
ED Screening Note Date of service: 01/23/19 Time: 20:59 ED Screening Note: 38 y/o female comes in for abd pain times 3 day. Having N/V. LMP/08/08. G0. Pain feels like period pain. This initial assessment/diagnostic orders/clinical plan/treatment(s) is/are subject to change based on patients health status, clinical progression and re- assessment by fellow clinical providers in the ED. Further treatment and workup at subsequent clinical providers discretion. Patient/guardian urged not to elope from the ED as their condition may be serious if not clinically assessed and managed. Initial orders include:
[2019-01-23 21:34] LABS: Basophils % (Auto) 0.5 % (0.0-1.8); Eosinophils % (Auto) 0.9 % (0.0-4.3); Hematocrit 38.1 % (30.3-42.9); Hemoglobin 12.2 gm/dl (10.1-14.3); Lymphocytes # (Auto) 2.1 K/mm3 (1.2-5.4); Lymphocytes % (Auto) 40.2 % (13.4-35.0); Mean Corpuscular HGB Conc 32 % (30-34); Mean Corpuscular Volume 73 fl (79-97); Monocytes # (Auto) 0.7 K/mm3 (0.0-0.8); Monocytes % (Auto) 13.7 % (0.0-7.3); Platelet Count 278 K/mm3 (140-440); Red Blood Count 5.25 M/mm3 (3.65-5.03); Red Cell Distribution Width 14.1 % (13.2-15.2)
[2019-01-23 21:53] LABS: Alanine Aminotransferase 12 units/L (7-56); Albumin 4.4 g/dL (3.9-5); BUN/Creatinine Ratio 20; Blood Urea Nitrogen 12 mg/dL (7-17); Calcium 9.2 mg/dL (8.4-10.2); Hemolysis Index 4
[2019-01-23] MEDS ORDERED: PEPCID IV ONE (22:56)
[2019-01-23] MEDS ORDERED: MORPHINE IV ONE (23:06)
--- NOTE | 2019-01-24 01:18 | Emergency Department Report ---
ED Abdominal Pain HPI - General Chief Complaint: Abdominal Pain Stated Complaint: ABD PAIN Time Seen by Provider: 01/23/19 20:57 Source: patient, family Mode of arrival: Ambulatory Limitations: No Limitations - History of Present Illness Initial Comments: Patient is a nulliparous 38-year-old Nepalese female with a history of chronic depression, bipolar disorder and schizophrenia who presents to the ED with acute onset persistent nausea and vomiting and dysmenorrhea for the last 2 days. Patient states that the pain is in the suprapubic area and is typical of her chronic dysmenorrhea that she experiences every month. Patient denies fever, chills, dizziness, headache, chest pain, shortness of breath, dysuria, urinary frequency and urgency, vaginal discharge, low back pain or diarrhea. Patient states that she is unable to keep anything down due to nausea and vomiting from pain. MD Complaint: abdominal pain, other (Dysmenorrhea) -: Sudden, days(s) (2) Location: suprapubic Radiation: none Migration to: suprapubic Severity: moderate, severe Severity scale (0 -10): 6 Quality: cramping, aching Consistency: constant Improves With: nothing Worsens With: nothing Associated Symptoms: denies other symptoms, nausea, vomiting, anorexia. denies: diarrhea, fever, chills, constipation, dysuria, hematemesis, hematochezia - Related Data LMP Date: 01/19/19 Previous Rx's Medication Instructions Recorded Last Taken Type Ondansetron [Zofran Odt] 4 mg PO Q6HR PRN #20 tab.rapdis 12/02/15 Unknown Rx Promethazine [Phenergan TAB] 25 mg PO Q6HR PRN #20 tab 12/02/15 Unknown Rx traMADol [Ultram 50 MG tab] 50 mg PO Q6HR PRN #20 tablet 12/02/15 Unknown Rx Prednisone [predniSONE 5 mg (6-Day 5 mg PO .TAPER #1 tab.ds.pk 10/27/17 Unknown Rx Pack, 21 Tabs)] Triamcinolone 0.5% [Kenalog 0.5% 1 applic TP TID #60 mg 10/27/17 Unknown Rx CREAM] hydrOXYzine PAMOATE [Vistaril] 25 mg PO Q6HR PRN #20 capsule 10/27/17 Unknown Rx Ibuprofen [Motrin] 400 mg PO Q8H PRN #30 tablet 07/29/18 Unknown Rx Benzonatate [Tessalon Perles] 100 mg PO Q8HR #30 capsule 11/01/18 Unknown Rx Cetirizine HCl [ZyrTEC] 10 mg PO DAILY #30 capsule 11/01/18 Unknown Rx prednisoLONE SOD PHOSPHAT [Orapred] 15 mg PO DAILY #80 ml 11/01/18 Unknown Rx Acetaminophen/Codeine [Tylenol 1 tab PO Q6H PRN #15 tab 01/24/19 Unknown Rx /Codeine # 3 tab] Ibuprofen [Motrin] 400 mg PO Q8H PRN #20 tablet 01/24/19 Unknown Rx Ondansetron [Zofran Odt] 4 mg PO Q8HR PRN #20 tab.rapdis 01/24/19 Unknown Rx raNITIdine HCl [Zantac] 150 mg PO Q12H #30 tablet 01/24/19 Unknown Rx Allergies Allergy/AdvReac Type Severity Reaction Status Date / Time amoxicillin Allergy Unknown Verified 01/23/19 20:28 ED Review of Systems ROS: Stated complaint: ABD PAIN Other details as noted in HPI Constitutional: denies: chills, fever Eyes: denies: eye pain, eye discharge, vision change ENT: denies: ear pain, throat pain Respiratory: denies: cough, shortness of breath, wheezing Cardiovascular: denies: chest pain, palpitations Endocrine: no symptoms reported Gastrointestinal: abdominal pain, nausea, vomiting. denies: diarrhea Genitourinary: abnormal menses. denies: urgency, dysuria, discharge Musculoskeletal: denies: back pain, joint swelling, arthralgia Skin: denies: rash, lesions Neurological: denies: headache, weakness, paresthesias Psychiatric: denies: anxiety, depression Hematological/Lymphatic: denies: easy bleeding, easy bruising ED Past Medical Hx - Past Medical History Hx GERD: Yes Hx Psychiatric Treatment: Yes (Depression, Schizophrenia) Additional medical history: Patient has a psychiatric history. gastritis - Surgical History Hx Cholecystectomy: Yes - Social History Smoking Status: Never Smoker Substance Use Type: None - Medications Home Medications: Home Medications Medication Instructions Recorded Confirmed Last Taken Type Ondansetron [Zofran Odt] 4 mg PO Q6HR PRN #20 tab.rapdis 12/02/15 Unknown Rx Promethazine [Phenergan TAB] 25 mg PO Q6HR PRN #20 tab 12/02/15 Unknown Rx traMADol [Ultram 50 MG tab] 50 mg PO Q6HR PRN #20 tablet 12/02/15 Unknown Rx Prednisone [predniSONE 5 mg (6-Day 5 mg PO .TAPER #1 tab.ds.pk 10/27/17 Unknown Rx Pack, 21 Tabs)] Triamcinolone 0.5% [Kenalog 0.5% 1 applic TP TID #60 mg 10/27/17 Unknown Rx CREAM] hydrOXYzine PAMOATE [Vistaril] 25 mg PO Q6HR PRN #20 capsule 10/27/17 Unknown Rx Ibuprofen [Motrin] 400 mg PO Q8H PRN #30 tablet 07/29/18 Unknown Rx Benzonatate [Tessalon Perles] 100 mg PO Q8HR #30 capsule 11/01/18 Unknown Rx Cetirizine HCl [ZyrTEC] 10 mg PO DAILY #30 capsule 11/01/18 Unknown Rx prednisoLONE SOD PHOSPHAT [Orapred] 15 mg PO DAILY #80 ml 11/01/18 Unknown Rx Acetaminophen/Codeine [Tylenol 1 tab PO Q6H PRN #15 tab 01/24/19 Unknown Rx /Codeine # 3 tab] Ibuprofen [Motrin] 400 mg PO Q8H PRN #20 tablet 01/24/19 Unknown Rx Ondansetron [Zofran Odt] 4 mg PO Q8HR PRN #20 tab.rapdis 01/24/19 Unknown Rx raNITIdine HCl [Zantac] 150 mg PO Q12H #30 tablet 01/24/19 Unknown Rx ED Physical Exam - General Limitations: No Limitations General appearance: alert, in no apparent distress - Head Head exam: Present: atraumatic, normocephalic, normal inspection - Eye Eye exam: Present: normal appearance, PERRL, EOMI. Absent: scleral icterus, conjunctival injection, periorbital swelling, periorbital tenderness Pupils: Present: normal accommodation - ENT ENT exam: Present: normal exam, normal orophraynx, mucous membranes moist, TM's normal bilaterally, normal external ear exam - Neck Neck exam: Present: normal inspection, full ROM. Absent: tenderness - Respiratory Respiratory exam: Present: normal lung sounds bilaterally. Absent: respiratory distress, wheezes, rhonchi, chest wall tenderness, accessory muscle use, decreased breath sounds - Cardiovascular Cardiovascular Exam: Present: regular rate, normal rhythm, normal heart sounds. Absent: systolic murmur, diastolic murmur, rubs, gallop - GI/Abdominal GI/Abdominal exam: Present: soft, tenderness (suprapubic ), normal bowel sounds. Absent: guarding, rebound, hyperactive bowel sounds, hypoactive bowel sounds, organomegaly, bruit - Rectal Rectal exam: Present: deferred - Extremities Exam Extremities exam: Present: normal inspection, full ROM, normal capillary refill - Back Exam Back exam: Present: normal inspection, full ROM. Absent: tenderness, CVA tenderness (R), CVA tenderness (L), muscle spasm, paraspinal tenderness, verteb ral tenderness - Neurological Exam Neurological exam: Present: alert, oriented X3, CN II-XII intact, normal gait, reflexes normal - Psychiatric Psychiatric exam: Present: normal affect, normal mood - Skin Skin exam: Present: warm, dry, intact, normal color. Absent: rash ED Course Vital Signs 01/23/19 20:31 Temperature 97.9 F Pulse Rate 68 Respiratory 16 Rate Blood Pressure 100/62 O2 Sat by Pulse 98 Oximetry - Reevaluation(s) Reevaluation #1: 01/24/19 02:07 This is a 38-year-old female with a history of chronic depression, bipolar disorder and schizophrenia as well as dysmenorrhea with associated the acute onset persistent suprapubic pain and nausea and vomiting. In the ED, patient is alert and oriented 3 and is not in distress with normal vital signs. Lab test results were reviewed and are all unremarkable including urinalysis. Patient was treated for pain in the ED and also with antiemetics for nausea and vomiting. The patient also received normal saline 1 L IV bolus 1. On reevaluation, patient's pain is well controlled on patient has not had any naus ea and vomiting after being treated for the same in the ED. Patient was discharged home on medications specifically antiemetics, antacids and pain medications and advised follow-up with the joint decision in 5-7 days for reevaluation or return to the ED immediately if symptoms get worse. ED Medical Decision Making - Lab Data Result diagrams: 01/23/19 21:15 01/23/19 21:15 - Medical Decision Making This is a 38-year-old female with a history of chronic depression, bipolar disorder and schizophrenia as well as dysmenorrhea with associated the acute onset persistent suprapubic pain and nausea and vomiting. In the ED, patient is alert and oriented 3 and is not in distress with normal vital signs. Lab test results were reviewed and are all unremarkable including urinalysis. Patient was treated for pain in the ED and also with antiemetics for nausea and vomiting. The patient also received normal saline 1 L IV bolus 1. On reevaluation, patient's pain is well controlled on patient has not had any nausea and vomiting after being treated for the same in the ED. Patient was discharged home on medications specifically antiemetics, antacids and pain medications and advised follow-up with the joint decision in 5-7 days for reevaluation or return to the ED immediately if symptoms get worse. - Differential Diagnosis Dysmenorrhea; Pelvic pain; Nausea and vomiting Critical care attestation.: If time is entered above; I have spent that time in minutes in the direct care of this critically ill patient, excluding procedure time. ED Disposition Clinical Impression: Dysmenorrhea, Nausea and vomiting in adult Disposition: DC- TO HOME OR SELFCARE Is pt being admited?: No Does the pt Need Aspirin: No Condition: Stable Instructions: Dysmenorrhea (ED), Abdominal Pain (ED) Additional Instructions: FOLLOW UP WITH YOUR [facility] COUNSELOR PHYSICIAN IN 5-7 DAYS FOR REEVALUATION. RETURN TO THE ED IMMEDIATELY IF SYMPTOMS GET WORSE Prescriptions: Ibuprofen [Motrin] 400 mg PO Q8H PRN #20 tablet PRN Reason: Pain , Severe (7-10) Acetaminophen/Codeine [Tylenol /Codeine # 3 tab] 1 tab PO Q6H PRN #15 tab PRN Reason: Pain , Severe (7-10) raNITIdine HCl [Zantac] 150 mg PO Q12H #30 tablet Ondansetron [Zofran Odt] 4 mg PO Q8HR PRN #20 tab.rapdis PRN Reason: Nausea Referrals: BRIANNA GIBBS MD [Primary Care Provider] - 3-5 Days Time of Disposition: 01:20 Print Language: [place]
[2019-01-24 01:59] LABS: Bilirubin,Urine NEG (Negative); Color,Urine Colorless (Yellow); Protein,Urine <15 mg/dL mg/dL (Negative); Urobilinogen,Urine < 2.0 mg/dL (<2.0); WBC,Urine < 1.0 /HPF (0.0-6.0)
[2019-01-24 02:02] LABS: Blood,Urine LG (Negative); HCG Qualitative,Urine Negative (Negative)
== END 2019-01-24 02:28 | disposition home or self-care (01) ==
LOC: ED 20:26
DX: N94.6 Dysmenorrhea, unspecified (principal); K21.9 Gastro-esophageal reflux disease without esophagitis; F32.9 Major depressive disorder, single episode, unspecified; F20.9 Schizophrenia, unspecified; Z90.49 Acquired absence of other specified parts of digestive tract; Z79.899 Other long term (current) drug therapy; Z88.1 Allergy status to other antibiotic agents
CPT/HCPCS: 36415; 80053; 81001; 81025; 83690; 85025; 96374; 96375; 99283; J2270

== ENCOUNTER 2019-06-26 12:11 | Emergency (ER) | payer MEDICARE ==
[2019-06-26 12:40] VITALS: BP 117/69
--- NOTE | 2019-06-26 12:45 | Emergency Department Report ---
Blank Doc - Documentation Documentation: 38 Y/O FEMALE WITH PMH OF DEPRESSION AND SCHIZOPHRENA PRESENT TO ED REQUESTING IV FOR DEHYDRATION AND ANEMIA PER RECOMMENDATION OF HER CLINIC HOWEVER HER PAPERWORK DOES NOT SUPPORT THE CLAIMS. SHE DOES HAVE A 1 MONTH HISTORY OF OCCIPITAL HEADACHE WHICH STARTED WHEN SHE BEGAN THE [employer] AND [employer]. HEADACHES ARE WORSEN. SHE DENIES DIZZINESS, DIARRHEA, VOMITING, FEVER. SAYS HER DOCTOR THINKS SHE NEEDS FLUIDS BUT UNABLE TO START AN IV REQUEST WE START THE IV FOR HER FLUIDS General: Well appearing, nontoxic, no acute distress; Head: Normocephalic Atraumatic; Eyes: PERRL, EOMI; ENT: Airway patent; Neck: supple; Chest: Equal chest rise, non labored breathing; Skin: No visible rash, normal skin tone; Neuro: Alert and Oriented to person, place, and time; No focal deficit PLAN. MSE SCREEN OUT PT HEMODYNAMICLY STABLE. NO DISTRESS NORMAL VITALS. AND NORMAL H/H
== END 2019-06-26 13:37 | disposition left against medical advice (07) ==
LOC: ED 12:11
DX: E86.0 Dehydration (principal); Z53.21 Procedure and treatment not carried out due to patient leaving prior to being seen by health care provider